=== PATIENT | female | born 1980 | race African-American/Black ===

== ENCOUNTER 2017-04-21 18:19 | Emergency (ER) | payer OTHER ==
[~2017-04-21] VITALS: Ht 157.5 cm; Wt 63.5 kg
--- NOTE | 2017-04-21 18:39 | PHYS DOC ---
Adult General Chief Complaint Chief Complaint: FLU SYMPTOM HPI HPI Patient is a 37 year old female who presents with fever and some dysuria. She denies a sore throat chest discomfort, cough, headache, neck stiffness, abdominal pain. She's had some nausea and can't keep any liquids down at this point. She did try to take some medicine earlier and vomited up prior to arrival. Review of Systems Review of Systems Constitutional: Denies fever or chills [] Eyes: Denies change in visual acuity, redness, or eye pain [] HENT: Denies nasal congestion or sore throat [] Respiratory: Denies cough or shortness of breath [] Cardiovascular: No additional information not addressed in HPI [] GI: Denies abdominal pain, nausea, vomiting, bloody stools or diarrhea [] : Denies dysuria or hematuria [] Musculoskeletal: Denies back pain or joint pain [] Integument: Denies rash or skin lesions [] Neurologic: Denies headache, focal weakness or sensory changes [] Endocrine: Denies polyuria or polydipsia [] Physical Exam Physical Exam Constitutional: Well developed, well nourished, no acute distress, non-toxic appearance. [] HENT: Normocephalic, atraumatic, bilateral external ears normal, oropharynx moist, no oral exudates, nose normal. [] Eyes: PERRLA, EOMI, conjunctiva normal, no discharge. [] Neck: Normal range of motion, no tenderness, supple, no stridor. [] Cardiovascular:Heart rate regular rhythm, no murmur [] Lungs & Thorax: Bilateral breath sounds clear to auscultation [] Abdomen: Bowel sounds normal, soft, no tenderness, no masses, no pulsatile masses. [] Skin: Warm, dry, no erythema, no rash. [] Back: No tenderness, no CVA tenderness. [] Extremities: No tenderness, no cyanosis, no clubbing, ROM intact, no edema. [] Neurologic: Alert and oriented X 3, normal motor function, normal sensory function, no focal deficits noted. [] Psychologic: Affect normal, judgement normal, mood normal. [] EKG EKG [] Radiology/Procedures Radiology/Procedures [] Impressions: UTI Course & Med Decision Making Course & Med Decision Making Pertinent Labs and Imaging studies reviewed. (See chart for details) She was febrile upon arrival. Urine is positive for UTI. Patient was given Rocephin and being discharged home with 7 days of Levaquin. Return precautions given. Dragon Disclaimer Dragon Disclaimer This chart was dictated in whole or in part using Voice Recognition software in a busy, high-work load, and often noisy Emergency Department environment. It may contain unintended and wholly unrecognized errors or omissions. Departure Departure: Impression: Primary Impression: UTI (urinary tract infection) Disposition: HOME, SELF-CARE Condition: STABLE Referrals: PCP,NO (PCP) Patient Instructions: Urinary Tract Infection Additional Instructions: You have a bladder infection and you will need to take antibiotics for the next 7 days.Your first dose of antibiotics was given in the emergency department. Please start your next antibiotic tomorrow morning. Return ER if you have severe fevers, uncontrolled nausea vomiting, or other concerns. You will need to follow up with your primary care physician within the next week. Scripts Levofloxacin (LEVAQUIN) 500 Mg Tablet 1 TAB PO DAILY, #7 TAB Prov: GAURAV JACINTO MD 04/21/17 Problem Qualifiers Primary Impression: UTI (urinary tract infection) Urinary tract infection type: acute cystitis Hematuria presence: without hematuria Qualified Codes: N30.00 - Acute cystitis without hematuria GAURAV JACINTO MD Apr 21, 2017 18:39
[2017-04-21] MEDS ORDERED: ONDANSETRON ODT 4 MG TAB.RAPDIS ONE (18:54)
[2017-04-21] MEDS ORDERED: ACETAMINOPHEN 325 MG TABLET PO ONE (19:00)
[2017-04-21] MEDS ORDERED: IV NORMAL SALINE 1,000ML 1,000 ML IV ONE (19:15)
[2017-04-21] MEDS ORDERED: ONDANSETRON ODT 4 MG TAB.RAPDIS PO ONE (19:15)
[2017-04-21 19:19] LABS: INFLUENZA A PATIENT NEGATIVE (NEGATIVE); INFLUENZA B PATIENT NEGATIVE (NEGATIVE)
[2017-04-21 19:56] LABS: CLARITY,URINE CLOUDY; COLOR,URINE YELLOW; GLUCOSE,URINE NEG (NEG)
[2017-04-21 19:58] LABS: BILIRUBIN,URINE NEG (NEG); NITRITE,URINE POS (NEG); UROBILINOGEN,URINE 4 mg/dL (0.2 mg/dL)
[2017-04-21 19:59] LABS: BACTERIA,URINE FEW /HPF (0-FEW); SQUAMOUS EPITHELIAL CELL,UR FEW /LPF; WBC,URINE >40 /HPF (0-4)
[2017-04-21] MEDS ORDERED: IV NORMAL SALINE 50ML 50 ML ONE (21:05)
[2017-04-21] MEDS ORDERED: cefTRIAXone SODIUM 1 GM VIAL IV ONE (21:05)
[2017-04-21] MEDS ORDERED: LEVO500T59 PO (21:14)
[2017-04-21 21:53] VITALS: BP 110/62
== END 2017-04-21 21:56 | disposition home or self-care (01) ==
LOC: ER 18:19
DX: N30.00 Acute cystitis without hematuria (principal)
CPT/HCPCS: 81001; 81025; 87070; 87086; 87804; 87880; 96361; 96365; 99284; J0696; Q0162; J7030

== ENCOUNTER 2017-09-03 22:11 | Emergency (ER) | payer OTHER ==
[~2017-09-03] VITALS: Ht 157.5 cm; Wt 63.5 kg
[~2017-09-03 22:11] MED LIST: LEVO500T59 PO
[2017-09-03] MEDS ORDERED: IV NORMAL SALINE 1,000ML 1,000 ML IV SCH (23:10)
[2017-09-03] MEDS ORDERED: BENZONATATE 100 MG CAPSULE. PO ONE (23:15)
[2017-09-03] MEDS ORDERED: KETOROLAC 30 MG/ML VIAL. IV ONE (23:15)
[2017-09-03 23:21] LABS: BASO % 1 % (0-3); EOS % 0 % (0-3); HEMATOCRIT 42.1 % (36.0-47.0); LYMPH # 1.4 x10^3/uL (1.0-4.8); LYMPH % 41 % (24-48); MEAN CORPUSCULAR HEMOGLOBIN 27 pg (25-35); MEAN CORPUSCULAR HGB CONC 33 g/dL (31-37); MEAN CORPUSCULAR VOLUME 80 fL (79-100); MONO # 0.2 x10^3/uL (0.0-1.1); MONO % 7 % (0-9); NEUT # 1.7 x10^3uL (1.8-7.7); NEUT % 51 % (31-73); PLATELET COUNT 210 x10^3/uL (140-400); RED BLOOD COUNT 5.25 x10^6/uL (3.50-5.40); RED CELL DISTRIBUTION WIDTH 14.7 % (11.5-14.5); WHITE BLOOD COUNT 3.4 x10^3/uL (4.0-11.0)
--- NOTE | 2017-09-03 23:22 | EKG ---
[address] [address] Test Date: 2017-09-03 Test Time: 22:39:25 Pat Name: FLAKITO ANAND Department: Room: Gender: F [employer]: : 1980 Requested By: ANTONIO ALEMAN Order Number: [id number] Reading MD: Noam Fang Measurements Intervals [place] Rate: 79 P: 56 VA: 140 QRS: 116 QRSD: 74 T: 51 QT: 370 QTc: 425 Interpretive Statements SINUS RHYTHM ABNORMAL RIGHT AXIS DEVIATION LOW LIMB LEAD VOLTAGE NONSPECIFIC ST-T WAVE CHANGES. ABNORMAL ECG RI6.01 No previous ECG available for comparison Electronically Signed On 09-09-2017 9:32:36 [employer] by Noam Fang
[2017-09-03 23:28] LABS: CREATININE 0.9 mg/dL (0.6-1.0); GFR 84.3; MAGNESIUM 1.7 mg/dL (1.8-2.4); POTASSIUM 3.5 mmol/L (3.5-5.1)
[2017-09-03] MEDS ORDERED: ONDANSETRON PF 4 MG/2 ML VIAL. IV ONE (23:45)
[2017-09-04 00:10] LABS: INFLUENZA A PATIENT NEGATIVE (NEGATIVE); INFLUENZA B PATIENT POSITIVE (NEGATIVE)
[2017-09-04] MEDS ORDERED: IBUP600T16 PO (00:27)
[2017-09-04] MEDS ORDERED: OSEL75CA PO (00:27)
[2017-09-04] MEDS ORDERED: ALBU18HF IH (00:27)
[2017-09-04] MEDS ORDERED: BENZ100C PO (00:27)
--- NOTE | 2017-09-04 00:27 | PHYS DOC ---
Past History Past Medical History: Other Past Surgical History: Alcohol Use: None Drug Use: None Adult General Chief Complaint Chief Complaint: CHEST PAIN HPI HPI Patient is a 37 year old female who presents with complaint of cough, chest pain , and fever. Patient states her symptoms started 2 days ago. Patient states her symptoms started with sore throat, dry cough. Patient states that her symptoms have progressed. Patient is having pain across her chest which she states worsens with cough. Patient states that it feels like tightness. Patient denies any significant past medical history. Patient has not taken any medications for her symptoms. Patient is feeling very weak and tired. The patient states that her sister has had similar symptoms at home and patient is concerned that she may have caught an illness from her. Review of Systems Review of Systems Constitutional: Fever, chills, malaise[] Eyes: Denies change in visual acuity, redness, or eye pain [] HENT: Nasal congestion[] Respiratory: Cough, chest congestion[] Cardiovascular: Denies substernal chest pain[] GI: Denies abdominal pain, nausea, vomiting, bloody stools or diarrhea [] : Denies dysuria or hematuria [] Musculoskeletal: Myalgias[] Integument: Denies rash or skin lesions [] Neurologic: Headache, denies focal weakness or sensory changes [] All other systems were reviewed and found to be within normal limits, except as documented in this note. Current Medications Current Medications Current Medications Medications (Trade) Dose Ordered Sig/Raheem Start Time Stop Time Status Last Admin Dose Admin Benzonatate (Tessalon Perle) 100 mg 1X ONCE 09/03/17 23:15 09/03/17 23:16 DC 09/03/17 23:27 100 MG Ketorolac Tromethamine (Toradol) 30 mg 1X ONCE 09/03/17 23:15 09/03/17 23:16 DC 09/03/17 23:27 30 MG Ondansetron HCl (Zofran) 4 mg 1X ONCE 09/03/17 23:45 09/03/17 23:46 DC 09/03/17 23:37 4 MG Sodium Chloride 1,000 ml @ 1,000 mls/hr Q1H 09/03/17 23:10 09/04/17 00:09 DC 09/03/17 23:26 1,000 MLS/HR Allergies Allergies Allergies Coded Allergies Type Severity Reaction Last Updated Verified No Known Drug Allergies 04/21/17 No Physical Exam Physical Exam Constitutional: Alert, febrile, appears ill. [] HENT: Normocephalic, atraumatic, bilateral external ears normal, oropharynx moist, no oral exudates, nose normal. [] Eyes: PERRLA, EOMI, conjunctiva normal, no discharge. [] Neck: Normal range of motion, no tenderness, supple, no stridor. [] Cardiovascular:Heart rate regular rhythm, no murmur [] Lungs & Thorax: Occasional rhonchi, no wheezes, no rales[] Abdomen: Bowel sounds normal, soft, no tenderness, no masses, no pulsatile masses. [] Skin: Warm, dry, no erythema, no rash. [] Back: No tenderness, no CVA tenderness. [] Extremities: No tenderness, no cyanosis, no clubbing, ROM intact, no edema. [] Neurologic: Alert and oriented X 3, normal motor function, normal sensory function, no focal deficits noted. [] Current Patient Data Vital Signs Vital Signs Date Time Temp Pulse Resp B/P (MAP) Pulse Ox O2 Delivery O2 Flow Rate FiO2 09/03/17 22:11 100.4 86 18 99 Room Air Lab Results Laboratory Tests Test 09/03/17 22:30 09/03/17 22:35 Influenza Type A (Rapid) Negative (NEGATIVE) Influenza Type B (Rapid) Positive (NEGATIVE) White Blood Count 3.4 x10^3/uL (4.0-11.0) L Red Blood Count 5.25 x10^6/uL (3.50-5.40) Hemoglobin 14.0 g/dL (12.0-15.5) Hematocrit 42.1 % (36.0-47.0) Mean Corpuscular Volume 80 fL (79-100) Mean Corpuscular Hemoglobin 27 pg (25-35) Mean Corpuscular Hemoglobin Concent 33 g/dL (31-37) Red Cell Distribution Width 14.7 % (11.5-14.5) H Platelet Count 210 x10^3/uL (140-400) Neutrophils (%) (Auto) 51 % (31-73) Lymphocytes (%) (Auto) 41 % (24-48) Monocytes (%) (Auto) 7 % (0-9) Eosinophils (%) (Auto) 0 % (0-3) Basophils (%) (Auto) 1 % (0-3) Neutrophils # (Auto) 1.7 x10^3uL (1.8-7.7) L Lymphocytes # (Auto) 1.4 x10^3/uL (1.0-4.8) Monocytes # (Auto) 0.2 x10^3/uL (0.0-1.1) Eosinophils # (Auto) 0.0 x10^3/uL (0.0-0.7) Basophils # (Auto) 0.0 x10^3/uL (0.0-0.2) Sodium Level 130 mmol/L (136-145) L Potassium Level 3.5 mmol/L (3.5-5.1) Chloride Level 95 mmol/L (98-107) L Carbon Dioxide Level 24 mmol/L (21-32) Anion Gap 11 (6-14) Blood Urea Nitrogen 9 mg/dL (7-20) Creatinine 0.9 mg/dL (0.6-1.0) Estimated GFR (Cockcroft-Gault) 84.3 Glucose Level 108 mg/dL (70-99) H Calcium Level 9.0 mg/dL (8.5-10.1) Magnesium Level 1.7 mg/dL (1.8-2.4) L EKG EKG Interpreted by me: Heart rate 79, sinus rhythm, right axis deviation, no acute ST/T-wave abnormalities present[] Radiology/Procedures Radiology/Procedures Two-view chest x-ray interpreted by me: No infiltrates, no effusions, normal cardiac silhouette Course & Med Decision Making Course & Med Decision Making Pertinent Labs and Imaging studies reviewed. (See chart for details) Patient positive for influenza B. Patient started on Tamiflu in the emergency department. Patient also given Tessalon Perles, IV fluids and Toradol for treatment of symptoms. Patient discharged with prescription for albuterol, Tamiflu, Tessalon, and ibuprofen. Advised follow-up with primary doctor in 3-4 days for reevaluation and return to emergency department for any worsening symptoms. Patient voiced understanding and in agreement with treatment plan. Dragon Disclaimer Dragon Disclaimer This electronic medical record was generated, in whole or in part, using a voice recognition dictation system. Departure Departure: Impression: Primary Impression: Influenza B Disposition: HOME, SELF-CARE Condition: IMPROVED Referrals: PCPDAMIEN (PCP) Patient Instructions: Influenza, Adult Additional Instructions: Follow-up with your primary doctor in 3-4 days for reevaluation. Return to emergency department for any worsening symptoms. Scripts Ibuprofen (IBUPROFEN) 600 Mg Tablet 600 MG PO Q6HRS Y for FEVER, #30 TAB Prov: ANTONIO ALEMAN MD 09/04/17 Oseltamivir Phosphate (TAMIFLU) 75 Mg Capsule 1 CAP PO BID, #10 CAP Prov: ANTONIO ALEMAN MD 09/04/17 Benzonatate (TESSALON PERLE) 100 Mg Capsule 100 MG PO TID Y for COUGH, #30 CAP Prov: ANTONIO ALEMAN MD 09/04/17 Albuterol Sulfate (VENTOLIN HFA INHALER) 18 Gm Hfa.aer.ad 2 PUFF IH Q4-6HRS Y for SHORTNESS OF BREATH, #1 INHALER 0 Refills Prov: ANTONIO ALEMAN MD 09/04/17 ANTONIO ALEMAN MD Sep 04, 2017 00:27
[2017-09-04] MEDS ORDERED: OSELTAMIVIR 75 MG CAPSULE PO ONE (00:45)
[2017-09-04] MEDS ORDERED: ALBUTEROL SULFATE 8GM INHALER. ONE (01:12)
[2017-09-04 01:25] VITALS: BP 100/71
[2017-09-04] MEDS ORDERED: ALBUTEROL SULFATE 8GM INHALER. INH ONE (02:30)
--- NOTE | 2017-09-04 08:02 | RAD ---
2 views of the Chest 09/04/2017 12:50 AM Indication: CHEST PAIN Comparison: None Findings: There is no focal consolidation or infiltrate identified. There is no effusion or pneumothorax. The cardiomediastinal silhouette and pulmonary vasculature are within normal limits. No osseous abnormality is identified. Impression: No evidence of acute cardiopulmonary process.
== END 2017-09-04 01:25 | disposition home or self-care (01) ==
LOC: ER 22:11
DX: J10.1 Influenza due to other identified influenza virus with other respiratory manifestations (principal); R07.9 Chest pain, unspecified
CPT/HCPCS: 36415; 71046; 80048; 83735; 85025; 87804; 93005; 94640; 96361; 96374; 96375; 99285; J1885; J2405; J7030

== ENCOUNTER 2018-12-25 09:15 | Emergency (ER) | payer OTHER ==
[~2018-12-25] VITALS: Ht 157.5 cm; Wt 65.8 kg
[~2018-12-25 09:15] MED LIST changes: +ALBU2.5V8 IH; +BENZ100C PO; +IBUP600T16 PO; +OSEL75CA PO
[2018-12-25 09:31] VITALS: BP 122/62
[2018-12-25] MEDS ORDERED: AMOX500T PO (09:40)
[2018-12-25] MEDS ORDERED: HYDR-3165 PO (09:40)
[2018-12-25] MEDS ORDERED: MELO7.5T29 PO (09:40)
--- NOTE | 2018-12-25 09:40 | PHYS DOC ---
Past History Past Medical History: Hypertension, Other Past Surgical History: Smoking: Non-smoker Alcohol Use: None Drug Use: None Adult General Chief Complaint Chief Complaint: EARACHE/EAR PAIN HPI HPI Patient is a 38-year-old female presents with right ear pain, right jaw pain and swelling. This started this morning. Pain is moderate to severe in intensity. She reports having a temporary filling placed several years ago that just came out. Denies any foul taste in the mouth. Denies any fever. No relief with home medicines. She denies any fever. Nothing seems to make it better. Worse with palpation and moving of the jaw. No radiation.[] Review of Systems Review of Systems Constitutional: Denies fever or chills [] Eyes: Denies change in visual acuity, redness, or eye pain [] HENT: Denies nasal congestion or sore throat [] Respiratory: Denies cough or shortness of breath [] Cardiovascular: No chest pain or palpitations[] GI: Denies abdominal pain, nausea, vomiting, bloody stools or diarrhea [] : Denies dysuria or hematuria [] Musculoskeletal: Denies back pain or joint pain [] Integument: Denies rash or skin lesions [] Neurologic: Denies headache, focal weakness or sensory changes [] Endocrine: Denies polyuria or polydipsia [] All other systems were reviewed and found to be within normal limits, except as documented in this note. Allergies Allergies Allergies Coded Allergies Type Severity Reaction Last Updated Verified No Known Drug Allergies 04/21/17 No Physical Exam Physical Exam Constitutional: Well developed, well nourished, no acute distress, non-toxic appearance. [] HENT: Normocephalic, atraumatic, bilateral external ears normal, bilateral TMs are clear without any blood or fluid, no pain with tragus tug, oropharynx moist, no oral exudates, nose normal. Tenderness to percussion tooth #29, no drainable abscess appreciated, there is swelling noted along the right jawline.[] Eyes: PERRLA, EOMI, conjunctiva normal, no discharge. [] Neck: Normal range of motion, no tenderness, supple, no stridor. [] Cardiovascular:Heart rate regular rhythm, no murmur [] Lungs & Thorax: Bilateral breath sounds clear to auscultation [] Abdomen: Not examined. [] Skin: Warm, dry, no erythema, no rash. [] Back: No tenderness, no CVA tenderness. [] Extremities: No tenderness, no cyanosis, no clubbing, ROM intact, no edema. [] Neurologic: Alert and oriented X 3, normal motor function, normal sensory function, no focal deficits noted. [] Psychologic: Affect normal, judgement normal, mood normal. [] EKG EKG [] Radiology/Procedures Radiology/Procedures [] Course & Med Decision Making Course & Med Decision Making Pertinent Labs and Imaging studies reviewed. (See chart for details) Medical decision making: Patient appears to have a periapical abscess without any drainable abscess appreciated. There is no evidence of ANUG, no Yehuda exam Gen., nontoxic patient, no evidence of impending airway or esophageal compromise. We will treat her with oral outpatient antibiotics as well as pain medication.[] Dragon Disclaimer Dragon Disclaimer This electronic medical record was generated, in whole or in part, using a voice recognition dictation system. Departure Departure: Impression: Primary Impression: Dental abscess Disposition: HOME, SELF-CARE Condition: IMPROVED Referrals: PCP,UNKNOWN (PCP) Patient Instructions: Dental Abscess Additional Instructions: Follow-up with your regular doctor or dentist in 2 days. If you do not have one, list of local dental clinics will be provided for you. Take the medication as prescribed. Return to the ER if worsening pain, difficulty swallowing, or any other concerns. Scripts Amoxicillin (AMOXICILLIN) 500 Mg Tablet 1 TAB PO TID for dental infection, #30 TAB Prov: ALIDA VEGA DO 12/25/18 Hydrocodone Bit/Acetaminophen (NORCO 5-325 TABLET) 1 Each Tablet 1-2 TAB PO Q4-6HRS for severe pain, #20 TAB Prov: ALIDA VEGA DO 12/25/18 Meloxicam (MELOXICAM) 7.5 Mg Tablet 7.5 MG PO DAILY for PAIN, #20 TAB Prov: ALIDA VEGA DO 12/25/18 ALIDA VEGA DO Dec 25, 2018 09:40
== END 2018-12-25 09:53 | disposition home or self-care (01) ==
LOC: ER 09:15
DX: K04.7 Periapical abscess without sinus (principal); I10 Essential (primary) hypertension
CPT/HCPCS: 99283

== ENCOUNTER 2020-06-01 11:23 | Emergency (ER) | payer MEDICAID, OTHER ==
[~2020-06-01] VITALS: Ht 167.6 cm; Wt 65.9 kg
[~2020-06-01 11:23] MED LIST changes: +AMOX500T PO; +HYDR-3165 PO; +MELO7.5T29 PO
[2020-06-01 11:38] VITALS: BP 111/77
[2020-06-01] MEDS ORDERED: PRED50TA PO (12:50)
[2020-06-01] MEDS ORDERED: BENZ100C PO (12:50)
--- NOTE | 2020-06-01 12:51 | PHYS DOC ---
Past History Past Medical History: No Pertinent History, Hypertension, Other Past Surgical History: Smoking: Non-smoker Alcohol Use: Occasionally Drug Use: None General Adult EDM: Chief Complaint: COUGH HPI: HPI: 40-year-old male coming in with chest congestion, productive cough, and headache. Denies any fevers, vomiting, diarrhea. Has a son with similar but more mild symptoms for 2 to 3 days. Child's vaccinations are up-to-date, but he is in daycare facility. Review of Systems: Review of Systems: Constitutional: Denies fever or chills Eyes: Denies change in visual acuity HENT: Congestion but denies sore throat Respiratory: Adductive cough and shortness of breath Cardiovascular: Denies chest pain or edema GI: Denies abdominal pain, nausea, vomiting, bloody stools or diarrhea : Denies dysuria Musculoskeletal: Denies back pain or joint pain Integument: Denies rash Neurologic: Frontal headache without focal weakness or sensory changes Endocrine: Denies polyuria or polydipsia Lymphatic: Denies swollen glands Psychiatric: Denies depression or anxiety Allergies: Allergies: Allergies Coded Allergies Type Severity Reaction Last Updated Verified No Known Drug Allergies 04/21/17 No Physical Exam: PE: Constitutional: Well developed, well nourished, no acute distress, non-toxic appearance. [] HENT: Normocephalic, atraumatic, bilateral external ears normal, oropharynx moist, no oral exudates, nose normal. [] Eyes: PERRLA, EOMI, conjunctiva normal, no discharge. [] Neck: Normal range of motion, no tenderness, supple, no stridor. [] Cardiovascular:Heart rate regular rhythm, no murmur [] Lungs & Thorax: Bilateral breath sounds clear to auscultation [] Abdomen: Bowel sounds normal, soft, no tenderness, no masses, no pulsatile masses. [] Skin: Warm, dry, no erythema, no rash. [] Back: No tenderness, no CVA tenderness. [] Extremities: No tenderness, no cyanosis, no clubbing, ROM intact, no edema. [] Neurologic: Alert and oriented X 3, normal motor function, normal sensory function, no focal deficits noted. [] Psychologic: Affect normal, judgement normal, mood normal. [] Current Patient Data: Vital Signs: Vital Signs Date Time Temp Pulse Resp B/P (MAP) Pulse Ox O2 Delivery O2 Flow Rate FiO2 06/01/20 11:38 97.9 78 16 111/77 (88) 99 Room Air EKG: EKG: [] Radiology/Procedures: Radiology/Procedures: [] Heart Score: Risk Factors: Risk Factors: DM, Current or recent (<one month) smoker, HTN, HLP, family history of CAD, obesity. Risk Scores: Score 0 - 3: 2.5% MACE over next 6 weeks - Discharge Home Score 4 - 6: 20.3% MACE over next 6 weeks - Admit for Clinical Observation Score 7 - 10: 72.7% MACE over next 6 weeks - Early Invasive Strategies Course & Med Decision Making: Course & Med Decision Making Pertinent Labs and Imaging studies reviewed. (See chart for details) [] Dragon Disclaimer: Dragon Disclaimer: This electronic medical record was generated, in whole or in part, using a voice recognition dictation system. Departure Departure: Impression: Primary Impression: Acute bronchitis Condition: STABLE Referrals: PCP,UNKNOWN (PCP) Additional Instructions: You have been tested for or diagnosed with COVID-19. It is an infection caused by a new type of coronavirus. COVID-19 will cause cold-like or mild flu symptoms in most. It can cause more severe symptoms like problems breathing in some. There is no treatment for COVID-19. The body will clear the infection over time. Self-care will help to ease discomfort. Steps to Take: Self-Care Rest as needed. Healthy habits may help you feel better. Steps include: Choose healthy foods including fruits and vegetables. Drink water throughout the day. Get plenty of sleep each night. If you smoke, try to quit. It may ease breathing. Avoid alcohol. Keep Others Healthy The virus can spread to others. Droplets are released every time you sneeze or cough. The droplets can get into the mouth, nose, or eyes of people near you and lead to infection. To lower the chances of spreading COVID-19 to others: Stay at home until your doctor has said it is safe to leave. If you tested positive this will mean staying isolated until both of the following are true: At least 7 days have passed since the start of illness. You are free of fever for at least 72 hours without the use of medicine. During this time: - Avoid public areas, events, or transportation. Do not return to work or school until your doctor has said it is safe to do so. - Call ahead if you need to go to a medical center. Let them know you may have COVID-19. It will help them guide you where to go. They may also ask you to wear a facemask when you come to the office. - If you call for emergency medical services, let them know you may have COVID- 19. While at home: - Try to avoid close contact with others. Stay about 6 feet away. - If possible, spend most of your time in a separate room from others. - Use a face mask if you will be in close contact with others such as sharing a room or vehicle. - Have someone wipe down common surfaces in the home. Use household bridge club manager every day on areas like doorknobs, counters, or sinks. - Cough or sneeze into a tissue. Throw the tissue away right after use. If a tissue is not available, cough or sneeze into your elbow. - Wash your hands often. Wash them after sneezing or coughing. Use soap and water and wash for at least 20 seconds. Alcohol based hand spool cleaner can be used if soap and water is not available. - Do not prepare food for others. Avoid sharing personal items like forks, spoons, or toothbrushes. - Avoid close contact with pets while you are sick. There is no evidence of the virus passing to pets. This is a safety step until more is known about this virus. Isolation can be frustrating. Social interaction can help. Keep in touch with friends and family through phone and tech options. You can still interact with others in your home, just keep a safe distance of about 6 feet. Follow-up: Your doctors office will check in with you to see if there are any changes in your health. You may be asked to keep track of symptoms to share with them. They will also let you know when you are clear to be in public again. Problems to Look Out For: Contact your doctor if your recovery is not going as you expect. Get emergency care if you have problems such as: - Trouble breathing - Nonstop chest pain or pressure - Changes in awareness, confusion, or problems waking - Lips or face have bluish color - Worsening of symptoms If you think you have an emergency, call for emergency medical services right away. As taken from [facility] Scripts Prednisone (PREDNISONE) 50 Mg Tablet 1 TAB PO DAILY for bronchitis for 5 Days, #5 TAB Prov: AB TATE MD 06/01/20 Benzonatate (TESSALON PERLE) 100 Mg Capsule 1 CAP PO TID for cough, #30 CAP Prov: AB TATE MD 06/01/20 AB TAET MD Jun 01, 2020 12:51
--- NOTE | 2020-06-04 12:44 | NUR ---
IP: attempt to call COVID result, call not accepted, will send letter.
== END 2020-06-01 12:59 | disposition home or self-care (01) ==
LOC: ER 11:23
DX: J20.9 Acute bronchitis, unspecified (principal); I10 Essential (primary) hypertension; Z20.828 Contact with and (suspected) exposure to other viral communicable diseases
CPT/HCPCS: 99283; C9803; U0003

== ENCOUNTER 2020-08-29 14:01 | Emergency (ER) | payer OTHER, MEDICAID ==
[~2020-08-29] VITALS: Ht 157.5 cm; Wt 65.9 kg
[~2020-08-29 14:01] MED LIST changes: +PRED50TA PO
[2020-08-29 14:18] VITALS: BP 112/74
--- NOTE | 2020-08-29 15:41 | PHYS DOC ---
Past History Past Medical History: No Pertinent History, Hypertension, Other Past Surgical History: Smoking: Non-smoker Alcohol Use: Occasionally Drug Use: None General Adult EDM: Chief Complaint: BACK PAIN OR INJURY HPI: HPI: History obtained from patient. Patient is a 40-year-old female with past medical significant for hypertension, recent oral surgery who presents with a complaint of low back pain. States the low back pain is been present for 2 weeks. She states it involves her bilateral back and radiates down her right leg. States it is difficult to ambulate. Denies any syncope. Denies chest pain or shortness of breath. Has tried meloxicam at home with minimal relief. Denies any spinal surgeries or trauma. Denies any lifting injuries. Denies vomiting. Denies urinary symptoms. States that the pain is aching in nature and sometimes shooting. Nothing seems to exacerbate or alleviate the pain. Patient denies any urinary retention, stool incontinence, saddle anesthesia, history of IV drug use, or history of cancer. Review of Systems: Review of Systems: Constitutional: Denies fever or chills Eyes: Denies change in visual acuity HENT: Denies nasal congestion or sore throat Respiratory: Denies cough or shortness of breath Cardiovascular: Denies chest pain or edema GI: Denies abdominal pain, nausea, vomiting, bloody stools or diarrhea : Denies dysuria Musculoskeletal: Positive for back pain Integument: Denies rash Neurologic: Denies headache, focal weakness or sensory changes Endocrine: Denies polyuria or polydipsia Lymphatic: Denies swollen glands Psychiatric: Denies depression or anxiety Allergies: Allergies: Allergies Coded Allergies Type Severity Reaction Last Updated Verified No Known Drug Allergies 04/21/17 No Physical Exam: PE: Constitutional: Well developed, well nourished, no acute distress, non-toxic appearance. [] HENT: Normocephalic, atraumatic, bilateral external ears normal, oropharynx moist, no oral exudates, nose normal. [] Eyes: PERRLA, EOMI, conjunctiva normal, no discharge. [] Neck: Normal range of motion, no tenderness, supple, no stridor. [] Cardiovascular:Heart rate regular rhythm, no murmur [] Lungs & Thorax: Bilateral breath sounds clear to auscultation [] Abdomen: soft, no tenderness, no masses, no pulsatile masses. [] Skin: Warm, dry, no erythema, no rash. [] Back: + 5/5 motor strength in dorsiflexion and plantarflexion of the great toes bilaterally. Sensation intact between the webbing of the first and second toes bilaterally. Mild midline L1-L3 tenderness. No step-offs or deformities. Extremities: No tenderness, no cyanosis, no clubbing, ROM intact, no edema. [] Neurologic: Alert and oriented X 3, normal motor function, normal sensory function, no focal deficits noted. [] Psychologic: Affect normal, judgement normal, mood normal. [] Current Patient Data: Vital Signs: Vital Signs Date Time Temp Pulse Resp B/P (MAP) Pulse Ox O2 Delivery O2 Flow Rate FiO2 08/29/20 14:18 98.0 68 16 112/74 (87) 100 Room Air EKG: EKG: [] Radiology/Procedures: Radiology/Procedures: [address] [address] IMAGING REPORT Signed PATIENT: FLAKITO ANAND MACCOUNT: [id number] : 1980 LOCATION: ER AGE: 40 SEX: F EXAM STATUS: REG ER ORD. PHYSICIAN: KALEB VARNER DO REASON: b/l low back pain PROCEDURE: CT ABDOMEN PELVIS WO CONTRAST Study: CT abdomen/pelvis without intravenous contrast Indication: Bilateral lower back pain. Comparison: None. Technique: Helical CT imaging performed of the abdomen and pelvis without the use of intravenous contrast. Sagittal and coronal reformats were obtained. One or more of the following individualized dose reduction techniques were utilized for this examination: 1. Automated exposure control 2. Adjustment of the mA and/or kV according to patient size 3. Use of iterative reconstruction technique. Findings: Inherently limited evaluation without intravenous contrast. Unremarkable visualized lungs and mediastinal contents. No discrete liver abnormality. Unremarkable gallbladder, biliary tree, pancreas, spleen and adrenal glands. Essentially symmetric renal size and density. No collecting system dilatation or stone. Within normal limits urinary bladder. No appreciable uterine abnormality. Unremarkable left adnexa. Right ovarian cystic focus potentially with a hematocrit level such as seen with a hemorrhagic cyst, image 84 series 2. The low-attenuation portion measures approximately 1.9 x 1.8 x 1.4 cm. Very small amount of free pelvic fluid. Mild volume colonic stool burden. No pericolonic inflammation. Normal appendix. No small bowel obstruction. Poorly evaluated stomach on account of underdistention. Nonaneurysmal aorta. No lymphadenopathy. No pneumoperitoneum. No acute body wall abnormality. Osteitis pubis with eburnation/cystic change along the pubic symphysis. Unremarkable SI joints maintained vertebral body height and alignment. Facet arthrosis most pronounced on the left at L4-L5 more so than L5-S1 but no more than moderate. No evidence for severe central canal or neural foraminal stenosis. Impression: 1. No acute abnormality seen throughout the abdomen or pelvis. 2. Small right adnexal cyst favored ovarian in origin and potentially hemorrhagic. This is felt unlikely related to the patient's presentation but could be further assessed with targeted ultrasound as deemed necessary. 3. No acute osseous abnormality or evidence on this unenhanced CT for severe central canal or neural foraminal stenosis. Facet arthrosis mainly on the left at L4-L5 more so than L5-S1. Nonemergent/outpatient MRI could be performed if there is ongoing concern. 4. A few additional chronic observations detailed in the body the report. Electronically signed by: SHAD HARDY MD (08/29/2020 4:06 PM) [id number] DICTATED AND SIGNED BY: SHAD HARDY MD DATE: 08/29/20 1555 CC: PCP,NO; KALEB VRANER DO ~MTH0 [address] [place] [address] IMAGING REPORT Signed PATIENT: FLAKITO ANAND MACCOUNT: [id number] : 1980 LOCATION: ER AGE: 40 SEX: F EXAM STATUS: REG ER ORD. PHYSICIAN: KALEB VARNER DO REASON: b/l low back pain PROCEDURE: CT LUMBAR SPINE WO CONTRAST Exam: CT the lumbar spine without contrast INDICATION: Bilateral lower back pain TECHNIQUE: Sequential axial images through the lumbar spine obtained without IV contrast. Sagittal and coronal reformatted images were reconstructed from the axial data and reviewed. Comparisons: CT same day FINDINGS: Vertebral body heights and alignment are well-maintained. Fracture to the lumbar spine is not identified. There is a broad-based disc bulge at L4-L5 causing mild spinal canal stenosis at this level. Additionally there is a broad-based disc bulge at L5-S1 without significant foraminal or spinal canal stenosis. Findings of the abdomen pelvis CT on separately dictated report. 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 Exposure: One or more of the following in the visualized dose reduction techniques were utilized for this examination: 1. Automated exposure control 2. Adjustment of the MA and/or KV according to patient size 3. Use of iterative of reconstructive technique Electronically signed by: Ez Mandel MD (08/29/2020 4:02 PM) [facility] DICTATED AND SIGNED BY: EZ MANDEL MD DATE: 08/29/20 155 CC: PCP,DAMIEN; KALEB VARNER DO ~MTH0 0 [] Heart Score: Risk Factors: Risk Factors: DM, Current or recent (<one month) smoker, HTN, HLP, family history of CAD, obesity. Risk Scores: Score 0 - 3: 2.5% MACE over next 6 weeks - Discharge Home Score 4 - 6: 20.3% MACE over next 6 weeks - Admit for Clinical Observation Score 7 - 10: 72.7% MACE over next 6 weeks - Early Invasive Strategies Course & Med Decision Making: Course & Med Decision Making Pertinent Labs and Imaging studies reviewed. (See chart for details) [] Patient is a 30-year-old female presents with complaint of low back pain radiating down her right leg. Initial vital signs normal. Exam overall reassuring. Mild point tenderness over the lumbar region. Symptoms are concerning for radiculopathy. CT imaging of the lumbar spine reveals disc bulge at the L4-L5 inner disc space. Mild canal stenosis appreciated. CT abdomen pelvis is also obtained per the patient's request given her mother's history of pancreatic cancer. This is grossly unremarkable. Right ovarian cyst identified. I do feel her signs and symptoms are most like related to her disc bulge. No red flag features on physical exam. Patient states that she drove herself and has no ride home. Therefore, we were limited in medication we can administer. She was given Lidoderm patch and Toradol with some relief of her discomfort. She has been able to ambulate unassisted. Initially laboratory Naus this was going to be obtained however I do feel her lumbar spine imaging likely explains her symptoms. Patient is declining laboratory analysis. Overall I do feel is reasonable. She was given referral to a neurosurgeon. She was given strict return precautions and expressed understanding. Stable for discharge home. Dragon Disclaimer: Dragon Disclaimer: This electronic medical record was generated, in whole or in part, using a voice recognition dictation system. Departure Departure: Impression: Primary Impression: Bulging disc Additional Impressions: Low back pain Qualified Codes: M54.41 - Lumbago with sciatica, right side Right ovarian cyst Disposition: HOME SELF CARE/HOMELESS Condition: STABLE Referrals: PCP,NO (PCP) Patient Instructions: Herniated Disk Additional Instructions: Dr. Mitchell Vergara MD. Neurosurgery [facility] Address: [address] [place] [address] [address], [place] [address] Scripts Methylprednisolone (MEDROL) 4 Mg Tab.ds.pk 1 PKG PO UD for pain, #1 PKG Prov: KALEB VARNER DO 08/29/20 Hydrocodone/Acetaminophen (Hydrocodone-Acetamin 5-325 mg) 1 Each Tablet 1 EACH PO TID PRN PRN for PAIN, #10 TAB Prov: KALEB VARNER DO 08/29/20 Lidocaine (Lidocaine) 1 Each Adh..patch 1 EACH TP DAILY for pain for 5 Days, #5 PATCH 4%. 12 hours on, 12 hours off. Prov: KALEB VARNER DO 08/29/20 Cyclobenzaprine Hcl (CYCLOBENZAPRINE HCL) 10 Mg Tablet 1 TAB PO TID PRN PRN for PAIN, #12 TAB Prov: KALEB VARNER DO 08/29/20 KALEB VARNER DO Aug 29, 2020 15:41
[2020-08-29] MEDS ORDERED: HYDROmorphone PF 1 MG/ML DISP.SYRIN IM ONE (15:45)
[2020-08-29] MEDS ORDERED: KETOROLAC 30 MG/ML VIAL. IM ONE (15:45)
[2020-08-29] MEDS ORDERED: LIDOCAINE (700MG/PATCH) PATCH. TD SCH (15:45)
--- NOTE | 2020-08-29 16:04 | RAD ---
Exam: CT the lumbar spine without contrast INDICATION: Bilateral lower back pain TECHNIQUE: Sequential axial images through the lumbar spine obtained without IV contrast. Sagittal an d coronal reformatted images were reconstructed from the axial data and reviewed. Comparisons: CT same day FINDINGS: Vertebral body heights and alignment are well-maintained. Fracture to the lumbar spine is not identified. There is a broad-based disc bulge at L4-L5 causing mild spinal canal stenosis at this level. Addition ally there is a broad-based disc bulge at L5-S1 without significant foraminal or spinal canal stenosi s. Findings of the abdomen pelvis CT on separately dictated report. 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 Exposure: One or more of the following in the visualized dose reduction techniques were utilized for this examination: 1. Automated exposure control 2. Adjustment of the MA and/or KV according to patient size 3. Use of iterative of reconstructive technique Electronically signed by: Ez Johnson MD (08/29/2020 4:02 PM) WILLIAM
--- NOTE | 2020-08-29 16:09 | RAD ---
Study: CT abdomen/pelvis without intravenous contrast Indication: Bilateral lower back pain. Comparison: None. Technique: Helical CT imaging performed of the abdomen and pelvis without the use of intravenous cont rast. Sagittal and coronal reformats were obtained. One or more of the following individualized dose reduction techniques were utilized for this examinat ion: 1. Automated exposure control 2. Adjustment of the mA and/or kV according to patient size 3. Use of iterative reconstruction technique. Findings: Inherently limited evaluation without intravenous contrast. Unremarkable visualized lungs and mediastinal contents. No discrete liver abnormality. Unremarkable gallbladder, biliary tree, pancreas, spleen and adrenal g lands. Essentially symmetric renal size and density. No collecting system dilatation or stone. Within normal limits urinary bladder. No appreciable uterine abnormality. Unremarkable left adnexa. Right ovarian cystic focus potentially with a hematocrit level such as seen with a hemorrhagic cyst, image 84 series 2. The low-attenuation portion measures approximately 1.9 x 1.8 x 1.4 cm. Very small amount of free pelvic fluid. Mild volume colonic stool burden. No pericolonic inflammation. Normal appendix. No small bowel obstru ction. Poorly evaluated stomach on account of underdistention. Nonaneurysmal aorta. No lymphadenopathy. No pneumoperitoneum. No acute body wall abnormality. Osteitis pubis with eburnation/cystic change along the pubic symphysis. Unremarkable SI joints mainta ined vertebral body height and alignment. Facet arthrosis most pronounced on the left at L4-L5 more s o than L5-S1 but no more than moderate. No evidence for severe central canal or neural foraminal sten osis. Impression: 1. No acute abnormality seen throughout the abdomen or pelvis. 2. Small right adnexal cyst favored ovarian in origin and potentially hemorrhagic. This is felt unli aurora related to the patient's presentation but could be further assessed with targeted ultrasound as deemed necessary. 3. No acute osseous abnormality or evidence on this unenhanced CT for severe central canal or neural foraminal stenosis. Facet arthrosis mainly on the left at L4-L5 more so than L5-S1. Nonemergent/outp atient MRI could be performed if there is ongoing concern. 4. A few additional chronic observations detailed in the body the report. Electronically signed by: SHAD HARDY MD (08/29/2020 4:06 PM) [id number]
[2020-08-29] MEDS ORDERED: LIDO1ADH63 TP (16:20)
[2020-08-29] MEDS ORDERED: METH4TAB2 PO (16:20)
[2020-08-29] MEDS ORDERED: HYDR-2759 PO (16:20)
[2020-08-29] MEDS ORDERED: CYCL-331 PO (16:20)
== END 2020-08-29 16:46 | disposition home or self-care (01) ==
LOC: ER 14:01
DX: M54.41 Lumbago with sciatica, right side (principal); N83.201 Unspecified ovarian cyst, right side; I10 Essential (primary) hypertension; Z98.890 Other specified postprocedural states
CPT/HCPCS: 72131; 74176; 96372; 99285; J1885

== ENCOUNTER 2021-05-16 13:55 | Emergency (ER) | payer OTHER, MEDICAID ==
[~2021-05-16] VITALS: Ht 157.5 cm; Wt 70.0 kg
[~2021-05-16 13:55] MED LIST changes: +CYCL10TA19 PO; +HYDR-2759 PO; +LIDO1ADH63 TP; +METH4TAB2 PO
[2021-05-16 14:31] VITALS: BP 117/62
[2021-05-16] MEDS ORDERED: IBUPROFEN 600 MG TABLET. PO ONE (14:45)
[2021-05-16] MEDS ORDERED: ONDA4TAB12 PO (15:08)
[2021-05-16] MEDS ORDERED: ORPH-16 PO (15:08)
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
== END 2021-05-16 16:25 | disposition home or self-care (01) ==
LOC: ER 13:55
DX: M54.50 Low back pain, unspecified (principal); V43.52XA Car driver injured in collision with other type car in traffic accident, initial encounter; Y93.89 Activity, other specified; Y92.488 Other paved roadways as the place of occurrence of the external cause; Y99.8 Other external cause status
CPT/HCPCS: 81025; 99283-25